=== PATIENT | female | born 1985 | race Caucasian/White ===

== ENCOUNTER 2020-07-14 19:01 | Emergency (ER) | payer OTHER ==
[~2020-07-14] VITALS: Ht 172.7 cm; Wt 115.5 kg
[2020-07-14 19:21] VITALS: BP 110/59
--- NOTE | 2020-07-14 19:48 | PHYS DOC ---
Past History Past Medical History: No Pertinent History (ANNY SCHROEDER APRN) Past Surgical History: , Other Additional Past Surgical Histo: left ear tumer (ANNY SCHROEDER APRN) Alcohol Use: Rarely (ANNY SCHROEDER APRN) General Adult EDM: Chief Complaint: FOOT INJURY PAIN HPI: HPI: Patient is a 34 year old female who presents with right foot toes #3 4 and 5 pain after rolling her foot over a soccer ball while playing soccer with her children at approximately 1730 today. Patient states she was wearing her shoe. Patient states when she removed her shoe that her fourth digit toe was pointed in the wrong direction. Patient states her father pulled toe back into the correct position and it stayed. Patient complains of pain to her toes. Patient denies other aches and pains. Patient denies other concerns. Patient states that she feels fine has no other complaints other than her toes hurting at this point. Patient denies any recent fever chills, headaches, sore throat, other body aches or muscle aches. Patient denies nausea, vomiting, diarrhea, or abdominal pains. Patient denies any loss of sensation, any increase or decrease thirst or urination. Patient denies any homicidal or suicidal ideations, patient denies any recent anxieties or depressions. (ANNY SCHROEDER APRN) Review of Systems: Review of Systems: Constitutional: Denies fever or chills Eyes: Denies change in visual acuity HENT: Denies nasal congestion or sore throat Respiratory: Denies cough or shortness of breath Cardiovascular: Denies chest pain or edema GI: Denies abdominal pain, nausea, vomiting, bloody stools or diarrhea : Denies dysuria Musculoskeletal: Denies back pain or joint pain, complains of right foot toes #3 4 and 5 pain. Integument: Denies rash Neurologic: Denies headache, focal weakness or sensory changes Endocrine: Denies polyuria or polydipsia Lymphatic: Denies swollen glands Psychiatric: Denies depression or anxiety (ANNY SCHROEDER APRN) Heart Score: Risk Factors: Risk Factors: DM, Current or recent (<one month) smoker, HTN, HLP, family history of CAD, obesity. Risk Scores: Score 0 - 3: 2.5% MACE over next 6 weeks - Discharge Home Score 4 - 6: 20.3% MACE over next 6 weeks - Admit for Clinical Observation Score 7 - 10: 72.7% MACE over next 6 weeks - Early Invasive Strategies (ANNY SCHROEDER APRN) Family History: Family History: Patient denies any family history significant to this ER visit today. (ANNY SCHROEDER APRN) Current Medications: Current Meds: Patient states she she takes medications at home for PTSD, depression, and anxiety, patient states that her symptoms are well controlled with these medications. (ANNY SCHROEDER APRN) Allergies: Allergies: Allergies Coded Allergies Type Severity Reaction Last Updated Verified No Known Drug Allergies 07/14/20 No (ANNY SCHROEDER APRN) Physical Exam: PE: Constitutional: Well developed, well nourished, no acute distress, non-toxic appearance. HENT: Normocephalic, atraumatic, bilateral external ears normal, oropharynx moist, no oral exudates, nose normal. Eyes: PERRLA, EOMI, conjunctiva normal, no discharge. Neck: Normal range of motion, no tenderness, supple, no stridor. Cardiovascular:Heart rate regular rhythm, no murmur Lungs & Thorax: Bilateral breath sounds clear to auscultation Abdomen: Bowel sounds normal, soft, no tenderness, no masses, no pulsatile masses. Skin: Warm, dry, no erythema, no rash. Back: No tenderness, no CVA tenderness. Extremities: No tenderness, no cyanosis, no clubbing, ROM intact, no edema. Patient's right foot specifically toes 3 4 and 5 were without swelling, cap refill less than 2 seconds, no crepitus noted, no bruising or erythema noted, no edema noted, skin intact, no evidence of open fracture. Neurologic: Alert and oriented X 3, normal motor function, normal sensory function, no focal deficits noted. [] Psychologic: Affect normal, judgement normal, mood normal. [] (ANNY SCHROEDER APRN) Current Patient Data: Vital Signs: Vital Signs Date Time Temp Pulse Resp B/P (MAP) Pulse Ox O2 Delivery O2 Flow Rate FiO2 07/14/20 19:21 97.8 67 18 110/59 (76) 96 Room Air (ANNY SCHROEDER APRN) EKG: EKG: [] (ANNY SCHROEDER APRN) Radiology/Procedures: Radiology/Procedures: PATIENT: IVAN SALVADOR ACCOUNT: [id number] : 1985 LOCATION: ER AGE: 34 SEX: F EXAM STATUS: PRE ER ORD. PHYSICIAN: ANNY SCHROEDER APRN REASON: BLUNT TRAUMA, PAIN CALCANEOUS, TOES 3,4,5 PROCEDURE: FOOT RIGHT 3V FOOT RIGHT 3V History: Reason: BLUNT TRAUMA, PAIN CALCANEOUS, TOES 3,4,5 / Spl. Instructions: / History: Technique: 3 views right foot. Comparison: None. Findings: Acute fourth proximal phalanx base fracture with mild displacement. Otherwise, normal alignment. No additional fracture. Plantar calcaneal spur. Impression: 1. Acute fourth proximal phalanx base fracture. Electronically signed by: Mikey Weinberg DO (07/14/2020 8:42 PM) [facility] DICTATED AND SIGNED BY: MIKEY WEINBERG DO DATE: 07/14/202041 CC: ANNY SCHROEDER APRN; PRISCILLA JETT DO ~ (ANNY SCHROEDER APRN) Course & Med Decision Making: Course & Med Decision Making Pertinent Labs and Imaging studies reviewed. (See chart for details) 34-year-old female who presented to the ER with right foot toes pain after playing soccer with her children and rolling her foot over the top of the soccer ball. Patient states that when she took her shoe off she noticed that her fourth toe was pointed in the wrong direction, patient states her dad pulled it in the correct direction she felt it pop. Imaging was performed, no signs of dislocation however, there is a nondisplaced fracture of the fourth digit proximal phalanx per facility radiologist. Discussed with patient finding of the x-ray, will negro tape toes and use postop shoe until she is followed up with orthopedic surgeon. Patient gave verbal understanding of home care instructions use of postop shoe and negro taping. Patient had no further questions or concerns. Patient given prescription for [place] and Motrin for pain, patient to use ice packs to her sore toes at 15-minute intervals for the next 48 hours. Patient was given a excuse from school for the next week so she will have time to follow-up with her orthopedic surgeon. Patient discharged home without incident. (ANNY SCHROEDER APRN) Dragon Disclaimer: Dragbeth Disclaimer: This electronic medical record was generated, in whole or in part, using a voice recognition dictation system. (ANNY SCHROEDER APRN) Attending Co-Sign The patient was seen and interviewed as well as examined at the bedside. The [facility] rt was reviewed. The case was discussed. Agree with the plan of care. (HARJINDER BALLESTEROS DO) Departure Departure: Impression: Primary Impression: Toe fracture, right Qualified Codes: S92.514A - Nondisplaced fracture of proximal phalanx of right lesser toe(s), initial encounter for closed fracture Disposition: 01 DC HOME SELF CARE/HOMELESS Condition: GOOD Referrals: PRISCILLA JETT DO (PCP) Patient Instructions: Negro Taping of Toes, Cast Shoe Additional Instructions: Negro tape your fourth toe to your third toe and wear postop shoe as directed until released by orthopedic surgeon, use ice packs 15 minutes on 15 minutes off for the next several days. Follow-up with orthopedic surgeon for evaluation of your broken toe. Take medications as prescribed. Follow-up with your doctor soon. Return to the emergency department for worsening symptoms or further concerns. Scripts Hydrocodone Bit/Acetaminophen (NORCO 5-325 TABLET) 1 Each Tablet 1 TAB PO PRN Q6HRS PRN for PAIN, #14 TAB 0 Refills Prov: ANNY SCHROEDER APRN 07/14/20 Ibuprofen (Ibu) 600 Mg Tablet 600 MG PO TID for PAIN AND SWELLING FROM FRACTUR, #20 TAB 0 Refills Prov: ANNY SCHROEDER APRN 07/14/20 ANNY SCHROEDER APRN Jul 14, 2020 19:48 HARJINDER BALLESTEROS DO Jul 15, 2020 02:42
[2020-07-14] MEDS: HYDROcodone/APAP 5/325MG 1 TAB TABLET PO ONE (20:13)
--- NOTE | 2020-07-14 20:45 | RAD ---
FOOT RIGHT 3V History: Reason: BLUNT TRAUMA, PAIN CALCANEOUS, TOES 3,4,5 / Spl. Instructions: / History: Technique: 3 views right foot. Comparison: None. Findings: Acute fourth proximal phalanx base fracture with mild displacement. Otherwise, normal alignment. No additional fracture. Plantar calcaneal spur. Impression: 1. Acute fourth proximal phalanx base fracture. Electronically signed by: Mikey Weinberg DO (07/14/2020 8:42 PM) [facility]
[2020-07-14] MEDS ORDERED: IBUP-571 PO (21:12)
[2020-07-14] MEDS ORDERED: HYDR-3165 PO (21:12)
== END 2020-07-14 21:21 | disposition home or self-care (01) ==
LOC: ER 19:01
DX: S92.514A Nondisplaced fracture of proximal phalanx of right lesser toe(s), initial encounter for closed fracture (principal); X50.9XXA Other and unspecified overexertion or strenuous movements or postures, initial encounter; Y93.66 Activity, soccer; Y92.89 Other specified places as the place of occurrence of the external cause; Y99.8 Other external cause status
CPT/HCPCS: 73630; 99283

== ENCOUNTER 2021-05-13 09:55 | Emergency (ER) | payer OTHER ==
[~2021-05-13] VITALS: Ht 172.7 cm; Wt 111.0 kg
[~2021-05-13 09:55] MED LIST: HYDR-3165 PO; IBUP-571 PO
[2021-05-13 10:03] VITALS: BP 149/72
[2021-05-13] MEDS ORDERED: IBUPROFEN 600 MG TABLET. PO ONE (10:45)
[2021-05-13] MEDS ORDERED: ONDANSETRON ODT 4 MG TAB.RAPDIS PO ONE (10:45)
[2021-05-13] MEDS ORDERED: CIPR7.5D LEFT EAR (10:58)
--- NOTE | 2021-05-13 10:59 | PHYS DOC ---
Past History Past Medical History: No Pertinent History Additional Past Medical Histor: Ear infections (ANNY SCHROEDER BAR FINISH OPERATOR) Past Surgical History: , Other Additional Past Surgical Histo: left ear tumer (ANNY SCHROEDER APRN) Alcohol Use: Rarely (ANNY SCHROEDER APRN) Adult General Chief Complaint Chief Complaint: EARACHE/EAR PAIN HPI HPI Patient is a 35-year-old female presents to emergency department complaining of left ear pain for the past 3 days. Patient currently rates her pain a 7 out of 10 pain, describes pain as throbbing. States 3 days ago her pain started with a slow onset rated at a 1 out of 10 pain and slowly increased over the past 3 days. 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 Patient states her ear hurts inside, denies any pain to the earlobe structures or surrounding structures of the earlobe. Patient reports using an o ld medication of Cipro eardrops yesterday. Patient states she took a ibuprofen last night at midnight 800 mg with some relief. Patient states that the pain is making her feel nauseated however has no vomiting, abdominal pain, diarrhea or constipation. Patient denies dizziness, syncopal episodes, headaches. Patient denies recent fever or chills. Patient reports receiving the COVID-19 vaccination series. Patient reports her last menstrual cycle 3 weeks ago with normal directional flow. Patient denies any other physical complaints or physical concerns. (ANNY SCHROEDER APRN) Review of Systems Review of Systems 14 body systems of review of systems have been reviewed. See HPI for pertinent positives and negative responses, otherwise all other systems are negative, nonpertinent or noncontributory. Constitutional: Negative except as outlined in HPI above. Skin: Negative except as outlined in HPI above. Eyes: Negative except as outlined in HPI above. HENT: Negative except as outlined in HPI above. Respiratory: Negative except as outlined in HPI above. Cardiovascular: Negative except as outlined in HPI above. GI: Negative except as outlined in HPI above. : Negative except as outlined in HPI above. Musculoskeletal: Negative except as outlined in HPI above. Integument: Negative except as outlined in HPI above. Neurologic: Negative except as outlined in HPI above. Endocrine: Negative except as outlined in HPI above. Lymphatic: Negative except as outlined in HPI above. Psychiatric: Negative except as outlined in HPI above. (ANNY SCHROEDER APRN) Allergies Allergies Allergies Coded Allergies Type Severity Reaction Last Updated Verified No Known Drug Allergies 07/14/20 No (ANNY SCHROEDER APRN) Physical Exam Physical Exam Constitutional: Well developed, well nourished, no acute distress, non-toxic appearance. 35-year-old female no apparent distress. HENT: Normocephalic, atraumatic, bilateral external ears normal, oropharynx moist, no oral exudates, nose normal. Bilateral TMs within normal limits, right external auditory canal within normal limits, no drainage. Left external auditory canal with mild erythema with scant white color exudate, lymphadenopathy appreciated posterior cervical left, no other lymphadenopathy of the head or neck appreciated. No deep tissue infectious process appreciated of the oropharynx. Patient speaking in normal voice tones. No drooling, no trismus. Eyes: PERRLA, EOMI, conjunctiva normal, no discharge. Neck: Normal range of motion, no tenderness, supple, no stridor. Cardiovascular:Heart rate regular rhythm, no murmur Lungs & Thorax: Bilateral breath sounds clear to auscultation Abdomen: Bowel sounds normal, soft, no tenderness, no masses, no pulsatile masses. Skin: Warm, dry, no erythema, no rash. Back: No tenderness, no CVA tenderness. Extremities: No tenderness, no cyanosis, no clubbing, ROM intact, no edema. Neurologic: Alert and oriented X 3, normal motor function, normal sensory function, no focal deficits noted. Psychologic: Affect normal, judgement normal, mood normal. (ANNY SCHROEDER APRN) Current Patient Data Vital Signs Vital Signs Date Time Temp Pulse Resp B/P (MAP) Pulse Ox O2 Delivery O2 Flow Rate FiO2 05/13/21 10:03 98.6 72 16 149/72 99 Room Air (ANNY SCHROEDER APRN) EKG EKG [] (ANNY SCHROEDER APRN) Radiology/Procedures Radiology/Procedures [] (ANNY SCHROEDER APRN) Heart Score C/O Chest Pain: No Risk Factors: Risk Factors: DM, Current or recent (<one month) smoker, HTN, HLP, family history of CAD, obesity. Risk Scores: Risk Factors: DM, Current or recent (<one month) smoker, HTN, HLP, family history of CAD, obesity. (ANNY SCHROEDER APRN) Course & Med Decision Making Course & Med Decision Making Pertinent Labs and Imaging studies reviewed. (See chart for details) 35-year-old female, vital signs reviewed, presents to the emergency department concerning left ear pain for the past 2 days. Physical examination consistent with otitis externa of the left ear. Discussed findings with patient, ED planning will give ODT Zofran and 600 mg ibuprofen in emergency department, will prescribe Ciprodex eardrops for otitis externa, strict follow-up with the primary care this week, patient is amenable to ED plan and and discharge planning. Discussed with the patient all findings and diagnostic testing as well as the need to follow-up with their primary care provider for further evaluation and treatment or return to the ED if any new or worsening symptoms. Strict return precautions were also discussed at length, the patient voiced understanding and agreement with the discharge planning. The patient was nontoxic in appearance, in no apparent distress, and hemodynamically stable at the time of disposition. (ANNY SCHROEDER APRN) Dragon Disclaimer Dragon Disclaimer This electronic medical record was generated, in whole or in part, using a voice recognition dictation system. (ANNY SCHROEDER APRN) Attending Co-Sign The patient was seen and interviewed as well as examined at the bedside. The chart was reviewed. The case was discussed. Agree with the plan of care. (HARJINDER BALLESTEROS DO) Departure Departure: Impression: Primary Impression: Otitis externa Condition: GOOD Referrals: PRISCILLA JETT DO (PCP) Patient Instructions: Otitis Externa Additional Instructions: You were seen today for left ear pain, your physical examination revealed an infection of the external ear canal called otitis externa. As we discussed, I am prescribing you an antibiotic eardrop which you should take as prescribed and avoid getting any water in your ears until the infection is healed. Please return to the emergency department for worsening pain, redness, swelling, fever, headache, or any new or concerning symptoms. You may treat your ear pain with [id number] ibuprofen or Naprosyn. Please follow-up with your primary care physician this week for reexamination of your ear infection. Thank you for visiting our Emergency Department. It was a pleasure taking care of you today in the emergency department and we appreciate you trusting us with your care. If any additional problems come up don't hesitate to return to visit us. Please follow up with your primary care provider so they can plan additional care if ne eded and know about the problem that you had. If symptoms worsen come back to the Emergency Department. Any concerning symptoms that start such as chest pain, shortness of air, weakness or numbness on one side of the body, running high fevers or any other concerning symptoms return to the ER. EMERGENCY DEPARTMENT GENERAL DISCHARGE INSTRUCTIONS Thank you for coming to [facility] (ED) today and trusting us with you care. We trust that you had a positivie experience in our Emergency Department. If you wish to speak to the department management, you may call the director at [phone]. YOUR FOLLOW UP INSTRUCTIONS ARE FOLLOWS: 1. Do you have a private Doctor? If you do not have a private doctor, please ask for a resource list of physicians or clinics that may be able to assist you with follow up care. 2. The Emergency Physician has interpreted your x-rays. The X-Ray specialist will also review them. If there is a change in the findings, you will be notified in 48 hours when at all possible. 3. A lab test or culture has been done, your results will be reviewed and you will be notified if you need a change in treatment. ADDITIONAL INSTRUCTIONS AND INFORMATION: 1. Your care today has been supervised by a physician who is specially trained in emergency care. Many problems require more than one evaluation for a complete diagnosis and treatment. We recommend that you schedule your follow up appointment as recommended to ensure complete treatment of you illness or injury. If you are unable to obtain follow up care and continue to have a problem, or if your condition worsens, we recommend that you return to the ED. 2. We are not able to safely determine your condition over the phone nor are we able to give sound medical advice over the phone. For these safety reasons, if you call for medical advice we will ask you to come to the ED for further evaluation. 3. If you have any questions regarding these discharge instructions please call the ED at [phone]. SAFETY INFORMATION: In the interest of safety, wellness, and injury prevention; we encourage you to wear your sealbelt, if you smoke; quite smoking, and we encourage family to use a protective helmet for bicycling and other sporting events that present an increased risk for head injury. IF YOUR SYMPTOMS WORSEN OR NEW SYMPTOMS DEVELOP, OR YOU HAVE CONCERNS ABOUT YOUR CONDITION; OR IF YOUR CONDITION WORSENS WHILE YOU ARE WAITING FOR YOUR FOLLOW UP APPOINTMENT; EITHER CONTACT YOUR PRIMARY CARE DOCTOR, THE PHYSICIAN WHOSE NAME AND NUMBER YOU WERE GIVEN, OR RETURN TO THE ED IMMEDIATELY. Scripts Ciprofloxacin Hcl/Dexameth (CIPRODEX OTIC SUSPENSION) 7.5 Ml Drops.susp 4 DROP LEFT EAR BID for otitis externa for 7 Days, #1 BOTTLE 0 Refills Instill 4 drops into your left ear canal 2 times a day for the next 7 days. Avoid swimming or getting water into your ear until the infection is healed. Prov: ANNY SCHROEDER APRN 05/13/21 Problem Qualifiers Primary Impression: Otitis externa Otitis externa type: unspecified type Chronicity: acute Laterality: left Qualified Codes: H60.502 - Unspecified acute noninfective otitis externa, left ear ANNY SCHROEDER APRN May 13, 2021 10:59 HARJINDER BALLESTEROS DO May 15, 2021 15:25
== END 2021-05-13 11:08 | disposition home or self-care (01) ==
LOC: ER 09:55
DX: H60.502 Unspecified acute noninfective otitis externa, left ear (principal)
CPT/HCPCS: 99283; Q0162